=== PATIENT | male | born 1945 | race Caucasian/White ===

== ENCOUNTER 2017-03-31 07:08 | Day surgery (SDC) | payer MEDICARE, OTHER ==
[~2017-03-31] VITALS: Ht 177.8 cm; Wt 116.4 kg
--- NOTE | ~2017-03-31 | OP ---
PATIENT NAME: IRAM CARL MEDICAL RECORD: [id number] :49 LOCATION:D.[facility] ADMISSION DATE: SURGEON: ANGELINA FALCON MD DATE OF OPERATION: 03/31/2017 PROCEDURE: Colonoscopy with polypectomy, colonoscopy with biopsy. STRATEGIC COMMUNICATIONS MANAGER: Angelina Falcon MD SCOPE: Olympus video colonoscope. MEDICATIONS: Per TIVA anesthesia. INDICATION FOR TIVA: Obesity, severe obstructive sleep apnea, cardiac arrhythmias. The patient received 540 mg of propofol for this procedure, O2 of 4 liters. INDICATION FOR THE PROCEDURE: Diarrhea, hematochezia, right lower quadrant abdominal pain. FINDINGS: Informed consent was given. The patient was made comfortable with the above medications. After reaching an adequate level of sedation by slow IV push, the patient was placed on his left side. The rectal exam revealed poor sphincter tone, no fissures or fistulas were appreciated. No external skin tags were seen. The colonoscope was advanced with some difficulty to the cecum where the ileocecal valve and appendiceal orifice were identified, it was noted that the colon was massively dilated, the patient had an extremely poor prep, significant spasm was noted throughout the colon, all adding to the difficulty of this procedure. Within the sigmoid area, a 0.5-cm polyp was removed with hot biopsy forcep technique and within the rectal vault inflammation with some slight amount of hemorrhage was noted. This was also seen when we first introduced the scope into the rectal area, it is significant for proctitis at the proximal rectum and biopsies were obtained. The patient also has some very mild internal hemorrhoids. The scope was then withdrawn. IMPRESSION: 1. Extremely poor prep. 2. Massively dilated colon. 3. Spasm. 4. Sigmoid polyp, 0.5 cm in size, removed with hot biopsy forcep. 5. Rectal inflammation, somewhat hemorrhagic biopsied, significant for proctitis, and this is in the proximal rectum. 6. Mild internal hemorrhoids. PLAN: 1. No aspirin, no anti-inflammatory drugs times 14 days. 2. High fiber diet. 3. Return to clinic on a p.r.n. basis. The patient needs to follow a good bowel regimen with plenty of fluid and fiber. If he is constipated, he should use stool softeners and MiraLax judiciously. For diarrhea, he should increase the fiber and only use any Imodium on rare occasions. TRANSINT:[id number] Voice Confirmation ID: [id number] DOCUMENT ID: [id number] OPERATIVE REPORT [id number] IRAM CARL BRENDA MD CC: JOHNNA ALANIZ MD [id number] DICTATION DATE: 03/31/17 1049 MOLECULAR MODELER: 03/31/17 1255 [facility] [place] 03/31/17 [place] [id number] [place] [id number]
[2017-03-31] MEDS ORDERED: FOLBIC RF TABL1 EACH PO (08:07)
[2017-03-31] MEDS ORDERED: BUSPAR10 MG PO (08:07)
[2017-03-31] MEDS ORDERED: HYDROCODON-ACE1 EAC7 PO (08:08)
[2017-03-31] MEDS ORDERED: LAMICTAL200 MG PO (08:08)
[2017-03-31] MEDS ORDERED: ZOLOFT25 MG PO (08:09)
[2017-03-31] MEDS ORDERED: ZANTAC300 MG PO (08:09)
[2017-03-31 08:11] VITALS: BP 146/72; Ht 177.8 cm; Wt 116.4 kg
[2017-03-31 08:31] LABS: BASOPHILS 0.4 % (0-2); EOSINOPHILS 3.1 % (0-7); HEMATOCRIT 38.7 % (42.0-54.0); HEMOGLOBIN 12.5 g/dL (13.5-17.5); IMMATURE GRANULOCYTES 0.1 % (0-5); MCH 30.1 pg (26.0-34.0); MCHC 32.3 g/dL (31.0-37.0); MCV 93.3 fL (80.0-100.0); MEAN PLATELET VOLUME 11.5 fL (7.4-10.4); MONOCYTES 7.9 % (2-11); NEUTROPHILS 57.5 % (40-80); PLATELET COUNT 208 10x3/uL (130-400); RBC 4.15 10x6/uL (4.20-6.10); RDW 14.9 % (11.5-14.5); WBC 6.7 10x3/uL (4.8-10.8)
[2017-03-31 08:43] LABS: CALC OSMOLALITY 286 mosm/kg (275-300); CALCIUM 8.7 mg/dL (8.5-10.1); CARBON DIOXIDE 29.8 mmol/L (21.0-32.0); CHLORIDE - SERUM 107 mmol/L (98-107); GLUCOSE 89 mg/dL (74-106); SODIUM 144 mmol/L (136-145); UREA NITROGEN 14 mg/dL (7-18); eGFR NON AFRICAN AMERICAN 79 mL/min (90-120)
== END 2017-03-31 12:00 | disposition home or self-care (01) ==
LOC: D.OPS 07:08
PROVIDERS: Anesthesiology
DX: R10.11 Right upper quadrant pain (principal); R19.7 Diarrhea, unspecified; K92.1 Melena; R11.0 Nausea; G47.30 Sleep apnea, unspecified; Z01.812 Encounter for preprocedural laboratory examination

== ENCOUNTER 2017-05-31 11:28 | Emergency (ER) | payer MEDICARE, OTHER ==
[2017-03-31 08:11] VITALS: BMI 36.8
[~2017-05-31 11:28] MED LIST: BUSPAR10 MG PO; FOLBIC RF TABL1 EACH PO; HYDROCODON-ACE1 EAC7 PO; LAMICTAL200 MG PO; ZANTAC300 MG PO; ZOLOFT25 MG PO
== END 2017-05-31 12:25 | disposition home or self-care (01) ==
LOC: D.ER 11:28
DX: G50.0 Trigeminal neuralgia (principal)

== ENCOUNTER 2018-04-18 06:02 | Day surgery (SDC) | payer MEDICARE, OTHER ==
[~2018-04-18] VITALS: Ht 177.8 cm; Wt 107.0 kg
--- NOTE | ~2018-04-18 | OP ---
PATIENT NAME: IRAM CARL MEDICAL RECORD: [id number] :49 LOCATION:[facility] ADMISSION DATE: SURGEON: SRINIVASAN FRANKS MD DATE OF OPERATION: 04/18/2018 PREOPERATIVE DIAGNOSIS: Chronic tongue ulceration. POSTOPERATIVE DIAGNOSIS: Chronic tongue ulceration. PROCEDURE: Direct laryngoscopy, excision of a tongue lesion. SURGEON: Srinivasan Franks MD ANESTHESIA: General orotracheal. BLOOD LOSS: 1 cc. SPECIMENS: Right dorsal tongue lesion, sutured anteriorly. COMPLICATIONS: None. DISPOSITION: Recovery stable. FINDINGS: Frozen section diagnosis infectious and inflammatory changes, no evidence of carcinoma. DESCRIPTION OF PROCEDURE: He was brought to the operating room and placed in supine position, sedated and intubated by anesthesia. The eyes were taped. Table was turned 90 degrees. Head drapes applied and he was positioned for endoscopy. Using a headlight, oral cavity was examined. He was edentulous. Palate, buccal mucosa, floor of the mouth, tongue was examined. He had an ulceration on the posterior oral tongue on the dorsal surface on the right side, it was about 1.5 cm in size, slightly firm on the surface to palpation, especially around the edges, but nothing really deep and palpable. The tonsil fossae and palate were examined using a Kleinsasser J. laryngoscope. The posterior pharyngeal wall, lateral pharyngeal lovett all the way down to the piriform on the both sides were examined. The vallecula, base of tongue, supraglottic larynx, the cords, postcricoid area, were all carefully visualized. There were no lesions. The base of the tongue and tonsillar fossae were carefully palpated. Nothing was palpable, other than the lesion on the right dorsal tongue. The endoscopy was negative except for the lesion that was identified preoperatively. Tongue was grasped with a sponge, pulled the tip of the tongue out and then the lesion could be clearly visualized. A 15 blade was used to make an elliptical incision completely excising the ulcer and the firm tissue around the ulcer creating a defect about 3 cm in size on the right dorsal tongue. Scissors were used to remove that through the muscular layer of the tongue, full thickness of the dorsal tongue mucosa. No evidence of any abnormalities there. No evidence of invasion into the muscle from the ulceration. It was normal. A suture was placed anteriorly, it was sent for frozen, which returned infectious. Also chronically inflamed ulceration, no evidence of carcinoma. The lesion was closed, a couple of deep 3-0 Vicryl horizontal mattress sutures were placed submucosally to approximate the wound edges and then multiple interrupted horizontal mattress sutures were used to approximate the wound edges and completely close the wound. The pharynx was suctioned. He was awakened, extubated, and transported to recovery in good OPERATIVE REPORT [id number] IRAM CARL condition. No complications. TRANSINT:[id number] Voice Confirmation ID: [id number] DOCUMENT ID: [id number] SRINIVASAN FRANKS MD CC: [id number] DICTATION DATE: 04/18/1852 COLOR SPECIALIST: 04/18/18 1031 [facility] [address] [place] [address]
[2018-04-18 06:31] LABS: HEMATOCRIT 36.2 % (42.0-54.0); HEMOGLOBIN 11.2 g/dL (13.5-17.5); MCH 29.5 pg (26.0-34.0); MCHC 30.9 g/dL (31.0-37.0); MCV 95.3 fL (80.0-100.0); MEAN PLATELET VOLUME 10.4 fL (7.4-10.4); RBC 3.8 10x6/uL (4.20-6.10); RDW 16.8 % (11.5-14.5); WBC 8.8 10x3/uL (4.8-10.8)
[2018-04-18] MEDS ORDERED: WELLBUTRIN XL150 M1 PO (07:02)
[2018-04-18] MEDS ORDERED: PAXIL40 MG PO (07:04)
[2018-04-18] MEDS ORDERED: TRAZODONE HCL150 MG PO (07:04)
[2018-04-18] MEDS ORDERED: CELEBREX200 MG PO (07:05)
[2018-04-18 07:14] VITALS: BP 120/66; Ht 177.8 cm; Wt 107.0 kg
--- NOTE | 2018-04-18 08:45 | HP ---
PATIENT: IRAM CARL MEDICAL RECORD: [id number] ACCOUNT: [id number] LOCATION:[facility] : 49 ADMISSION DATE: 04/18/18 PCP: [facility]ECKMAN HISTORY AND PHYSICAL EXAMINATION PREOPERATIVE HISTORY AND PHYSICAL HISTORY OF PRESENT ILLNESS: Mr. Carl is 72 years old. He has a slightly ulcerated painful tongue lesion, right posterior dorsal tongue. He is being admitted for excision of that lesion. PAST MEDICAL HISTORY: Includes reflux, sleep apnea, trigeminal neuralgia. PAST SURGICAL HISTORY: Includes tonsillectomy, uvulectomy, appendectomy, left knee replacement, gastric bypass, back surgery. CURRENT MEDICATIONS: Include Wellbutrin, Buspirone, lamotrigine, paroxetine, ranitidine, Ambien. ALLERGIES: SULFA. PHYSICAL EXAMINATION: GENERAL: Healthy-appearing. FACE: Normal, symmetric, no lesions. EYES: Sclerae and conjunctivae are normal. EARS: Canals and TMs are normal. NOSE: No mass, polyps, or drainage. ORAL CAVITY AND OROPHARYNX: Ulcerated, tender lesion on the dorsal tongue. NECK: No masses, no adenopathy. CHEST: Clear. CARDIOVASCULAR: Regular rate and rhythm, no murmur. EXTREMITIES: Normal. IMPRESSION: Tongue lesion has been persistent. PLAN: Excision and closure of the tongue lesion. TRANSINT:[id number] Voice Confirmation ID: [id number] DOCUMENT ID: [id number] RIGO TONG MD at 0845 CC: [id number] DICTATION DATE: 04/14/18 1546 PROFESSIONAL FIGHTER: 04/14/18 1637 [address] [place] [id number] [place] [address]
--- NOTE | 2018-04-18 11:07 | NUR ---
DC INSTRUCTIONS GIVEN TO PT/FAMILY. STATE UNDERSTANDING.
--- NOTE | 2018-04-18 11:13 | NUR ---
PT LEFT UNIT VIA WC AT 1110
== END 2018-04-18 11:10 | disposition home or self-care (01) ==
LOC: D.OPS 06:02 → D.PAN 07:30 → D.OPS 08:30
PROVIDERS: Anesthesiology
DX: K14.0 Glossitis (principal); K21.9 Gastro-esophageal reflux disease without esophagitis; G47.30 Sleep apnea, unspecified; G50.0 Trigeminal neuralgia; Z01.812 Encounter for preprocedural laboratory examination

== ENCOUNTER 2018-10-14 03:54 | Emergency (ER) | payer MEDICARE, OTHER ==
[~2018-10-14] VITALS: Ht 177.8 cm; Wt 100.0 kg
[~2018-10-14 03:54] MED LIST changes: +CELEBREX200 MG PO; +PAXIL40 MG PO; +TRAZODONE HCL150 MG PO; +WELLBUTRIN XL150 M1 PO
[2018-10-14 03:59] VITALS: Ht 177.8 cm; Wt 100.0 kg
[2018-10-14] MEDS ORDERED: HYDROCHLOROTH12.5 M1 PO (04:01)
[2018-10-14] MEDS ORDERED: VOLTAREN75 MG PO (04:01)
[2018-10-14] MEDS ORDERED: NEURONTIN 300300 MG PO (04:01)
[2018-10-14] MEDS ORDERED: ULTRAM50 MG PO (05:22)
[2018-10-14 05:54] VITALS: BP 110/60
== END 2018-10-14 05:50 | disposition home or self-care (01) ==
LOC: D.ER 03:54
DX: S70.01XA Contusion of right hip, initial encounter (principal); X58.XXXA Exposure to other specified factors, initial encounter; Y93.89 Activity, other specified; Y92.89 Other specified places as the place of occurrence of the external cause

== ENCOUNTER → 2019-04-26 09:18 | Outpatient (CLI) | payer MEDICARE, OTHER ==
[2018-10-14 03:59] VITALS: BMI 31.6
--- NOTE | ~2019-04-26 | EC ---
PATIENT:IRAM CARL DATE OF SERVICE: 04/26/19 SEX: M MEDICAL RECORD: [id number] DATE OF : 49 [facility] AGE OF PATIENT: 73 ADMISSION DATE: 04/26/19 REFERRING PHYSICIAN: INTERPRETING PHYSICIAN: JOHNNA ALANIZ MD ECHOCARDIOGRAM REPORT ECHO CHARGES 4 ECHO COMPLETE Date: 04/26/19 CLINICAL DIAGNOSIS: A-FIB/RBBB ECHOCARDIOGRAPHIC MEASUREMENTS (adult normal given) AC root (d.<3.7cm) 3.6 cm LV Septum d (<1.2 cm> 1.1 cm Valve Excursion 2.1 cm LV Septum (systole) 1.9 cm Left Atria (s.<4.0cm> 4.8 cm LVPW d(<1.2cm) 1.2 cm RV (d.<2.3cm) 2.9 cm LVPW (sytole) 2.2 cm LV diastole(<5.6CM) 7.4 cm MV E-F(>70mm/sec) cm LV systole 4.8 cm LVOT Diameter 2.3 cm MV exc.(>10mm) cm Est.ejection fraction (50-75%) % DOPPLER: LVIT cm/sec A 69.0 cm/sec E 105 cm/sec LA cm/sec RVSP 50.0 mmHg LVOT 145 cm/sec AOP1/2T m/s Asc. Ao 208 cm/sec RVOT 67.0 cm/sec RA cm/sec PA 114 cm/sec AV Gradient Peak 17.4 mmHg AV Mean 8.4 mmHg AV Area 3.4 cm MV Gradient Peak 5.0 mmHg MV Mean 1.6 mmHg MV Area cm COMMENTS: OP - HC Home Care Provider: 1 ARMINDA PULIDOOE Folder Operator: 3 Dr. Urbina TAPE# PACS Pericardial Effusion N DATE OF SERVICE: 04/26/2019 Adequate 2D, color flow imaging, spectral Doppler, and M-Mode. No LVH. LV internal dimensions are normal. Wall motion is normal. EF is greater than or equal to 55%. Aortic valve is sclerotic. There is no evidence of stenosis by Doppler interrogation. Left atrium is dilated at 4.8 cm. Mitral valve shows no prolapse. Mild MR. Right-sided chambers are grossly normal. Mild TR. ECHOCARDIOGRAM REPORT [id number] IRAM CARL TRANSINT:[id number] Voice Confirmation ID: [id number] DOCUMENT ID: [id number] JOHNNA ALANIZ MD CC: [id number] DICTATION DATE: 04/26/191418 RADIOISOTOPE TECHNOLOGIST: 04/26/191912 [facility] [address] [place] [id number]
[~2019-04-26 09:18] MED LIST changes: +HYDROCHLOROTH12.5 M1 PO; +NEURONTIN 300300 MG PO; +ULTRAM50 MG PO; +VOLTAREN75 MG PO
== END | disposition home or self-care (01) ==
LOC: D.HCCECHO 09:18
PROVIDERS: ATTEND Internal Medicine Interventional Cardiology
DX: R01.1 Cardiac murmur, unspecified (principal)

== ENCOUNTER → 2019-10-17 13:25 | Outpatient (CLI) | payer MEDICARE, OTHER ==
[2018-10-14 03:59] VITALS: BMI 31.6
--- NOTE | 2019-10-18 08:18 | EC ---
PATIENT:IRAM CARL DATE OF SERVICE: 10/17/19 SEX: M MEDICAL RECORD: [id number] DATE OF : 49 LOCATION:D[facility] AGE OF PATIENT: 74 ADMISSION DATE: 10/17/19 REFERRING PHYSICIAN: INTERPRETING PHYSICIAN: JOHNNA ALANIZ MD ECHOCARDIOGRAM REPORT ECHO CHARGES 4 ECHO COMPLETE Date: 10/17/19 CLINICAL DIAGNOSIS: AFIB/EDEMA/DYSPNEA ON EXERTION ECHOCARDIOGRAPHIC MEASUREMENTS (adult normal given) AC root (d.<3.7cm) 4.4 cm LV Septum d (<1.2 cm> 1.6 cm Valve Excursion 1.7 cm LV Septum (systole) 2.1 cm Left Atria (s.<4.0cm> 4.1 cm LVPW d(<1.2cm) 1.5 cm RV (d.<2.3cm) 3.8 cm LVPW (sytole) 2.0 cm LV diastole(<5.6CM) 5.4 cm MV E-F(>70mm/sec) cm LV systole 3.4 cm LVOT Diameter 1.8 cm MV exc.(>10mm) 1.8 cm Est.ejection fraction (50-75%) % DOPPLER: LVIT cm/sec A 85.0 cm/sec E 74.0 cm/sec LA cm/sec RVSP 25 mmHg LVOT 158 cm/sec AOP1/2T m/s Asc. Ao 176 cm/sec RVOT cm/sec RA cm/sec PA cm/sec AV Gradient Peak 12.36mmHg AV Mean 6.30 mmHg AV Area 2.7 cm MV Gradient Peak 3.84 mmHg MV Mean 1.63 mmHg MV Area cm COMMENTS: Bus Operator: 2 FATEMEH MATA [employer] Director: 3 Dr. Urbina TAPE# PACS Pericardial Effusion N DATE OF SERVICE: Adequate 2D, color flow imaging, spectral Doppler, and M-Mode LVH is present. LV internal dimension is normal. Wall motion is normal. EF is greater than or equal to 55%. Aortic valve is tricuspid. No evidence of stenosis by Doppler interrogation. Left atrium is minimally dilated at 4.1 cm. Mitral valve shows no prolapse. Trivial MR. Right-sided chambers are grossly normal. Mild TR. TRANSINT:[id number] Voice Confirmation ID: [id number] DOCUMENT ID: [id number] ECHOCARDIOGRAM REPORT [id number] IRAM CARL GREGORY A MD at 0818 CC: [id number] DICTATION DATE: 10/17/191606 SOFTWARE PROJECT LEAD: 10/17/192045 DEP CLI 10/17/19 [place] [id number] [place] [id number]
== END | disposition home or self-care (01) ==
LOC: D.HCCECHO 13:25
PROVIDERS: ATTEND Internal Medicine Interventional Cardiology
DX: I48.91 Unspecified atrial fibrillation (principal)